=== PATIENT | male | born 1985 | race Caucasian/White ===

== ENCOUNTER 2017-11-22 12:14 | Emergency (ER) | payer SELFPAY ==
[~2017-11-22] VITALS: Ht 182.9 cm; Wt 115.8 kg
[2017-11-22 12:22] VITALS: BP 145/88
--- NOTE | 2017-11-22 12:27 | NUR ---
PT AA&OX4 WITH EVEN AND STEADY GAIT; RR EVEN/UNLABORED; PT TO LOBBY AWAITING OPEN BED.
--- NOTE | 2017-11-22 13:23 | NUR ---
PT TAKEN TO BED 1.
--- NOTE | 2017-11-22 13:25 | NUR ---
32M BIB FAMILY C/O REDNESS AND DISCHARGE TO BL EYES X 3 DAYS. WHITEISH/CLEAR DISCHARGE NOTED FROM BL EYES. MILD SWELLING TO BL EYES. PT STATES NO TRAUMA OR INJURY TO SITE. PT STATES NO VISION LOSS AT TIME TIME. PT IS AOX4 WITH STEADY GAIT. RR ARE EVEN AND UNLABORED. PT POSITIONED TO COMFORT, BED DOWN. NAD. AWAITING ER MD LYNCH. WILL CONTINUE TO MONITOR.
[2017-11-22] MEDS ORDERED: TETRACAINE HCL/PF 0.5% OPTH 4 ML BTL ONE (13:51)
[2017-11-22 14:47] VITALS: BP 126/82
--- NOTE | 2017-11-22 14:47 | NUR ---
Patient discharged with v/s stable. Written and verbal after care instructions given and explained. Patient alert, oriented and verbalized understanding of instructions. Ambulatory with steady gait. All questions addressed prior to discharge. ID band removed. Patient advised to follow up with PMD. Rx of Erythromycin given. Patient educated on indication of medication including possible reaction and side effects. Opportunity to ask questions provided and answered.
== END 2017-11-22 14:47 | disposition home or self-care (01) ==
LOC: MED 12:14
DX: H10.9 Unspecified conjunctivitis (principal); J06.9 Acute upper respiratory infection, unspecified
CPT/HCPCS: 99283